=== PATIENT | male | born 1990 | race African-American/Black ===

== ENCOUNTER 2018-08-11 21:36 | Emergency (ER) | payer SELFPAY ==
[~2018-08-11] VITALS: Ht 180.3 cm; Wt 64.0 kg
[2018-08-11 22:52] VITALS: BP 136/78
== END 2018-08-11 22:54 | disposition home or self-care (01) ==
LOC: ER 22:37
DX: M25.512 Pain in left shoulder (principal); F12.10 Cannabis abuse, uncomplicated; V43.52XA Car driver injured in collision with other type car in traffic accident, initial encounter; Y93.89 Activity, other specified; Y92.488 Other paved roadways as the place of occurrence of the external cause
CPT/HCPCS: 99281